=== PATIENT | female | born 1990 | race Caucasian/White ===

== ENCOUNTER 2017-09-15 11:50 | Emergency (ER) | payer OTHER ==
[~2017-09-15] VITALS: Ht 162.6 cm; Wt 67.0 kg
[2017-09-15 11:57] VITALS: Ht 162.6 cm; Wt 67.0 kg
[2017-09-15] MEDS ORDERED: MECLIZINE HCL 25 MG TAB PO STA (12:13)
[2017-09-15 12:44] LABS: BASO % 0.2 %; BASO ABS # 0.02 K/uL (0-0.2); EOS % 1.6 %; EOS ABS # 0.14 K/uL (0-0.5); HEMATOCRIT 42.9 % (37-47); HEMOGLOBIN 14.9 g/dL (12.0-16.0); IG# 0.01 K/uL (0.00-0.02); LYMPH % 20.5 %; LYMPH ABS # 1.85 K/uL (1.2-3.4); MEAN CELL VOLUME 90.7 fL (80-100); MEAN CORPUSCULAR HEMOGLOBIN 31.5 pg (25-34); MEAN CORPUSCULAR HGB CONC 34.7 g/dl (32-36); MEAN PLATELET VOLUME 9.4 fL (7.4-10.4); MONO % 4.6 %; MONO ABS # 0.41 K/uL (0.11-0.59); NEUT ABS # 6.58 K/uL (1.4-6.5); PLATELET COUNT 227 K/uL (130-400); RED CELL DISTRIBUTION WIDTH CV 12.5 % (11.5-14.5); WHITE BLOOD COUNT 9.01 K/uL (4.8-10.8)
[2017-09-15 12:55] LABS: CALCIUM 8.7 mg/dl (8.5-10.1); CREATININE 0.67 mg/dl (0.60-1.20); POTASSIUM 3.5 mmol/L (3.5-5.1)
[2017-09-15] MEDS ORDERED: MECL1TAB42 PO (14:57)
--- NOTE | 2017-09-15 15:00 | EMERGENCY ROOM VISIT NOTE ---
History First contact with patient: 12:02 Chief Complaint: VERTIGO Stated Complaint: VERTIGO Nursing Triage Summary: pt here with dizziness since 0300 this am. pt denies any headache or injury. pt states is dizzy with lying flat and getting up. pt states only nauseated when trying a "maneuver" her brother recommended to "dislodge crystal" in ear History of Present Illness The patient is a 26 year old female who presents to the Emergency Room via private vehicle accompanied by male with complaints of "vertigo". The patient states that this morning around 3 AM she woke up noting that she was sleeping on her glasses and then realized that the room was spinning. She describes it as vertigo. She states that she tried the Bing maneuver as recommended by her brother and it seemed to make it worse. She denies any history of this before. She notes associated nausea. No vomiting, no extremity weakness or speech troubles. She denies any recent alcohol use, or head trauma/injury. Pain 0/10 Review of Systems A complete 10-point Review of Systems was discussed with the patient, with pertinent positives and negatives listed in the History of Present Illness. All remaining Review of Systems questions can be considered negative unless otherwise specified. Past Medical/Surgical History No pertinent Family History Non contributory Social History Smoking Status: Never Smoker Patient is a [employer] student and lives locally. Current/Historical Medications Scheduled PRN Meclizine Hcl (Meclizine Hcl), 1 TAB PO TID PRN for Dizziness or Vertigo Physical Exam Vital Signs Date Time Temp Pulse Resp B/P (MAP) Pulse Ox O2 Delivery O2 Flow Rate FiO2 09/15/17 15:20 36.2 64 17 105/64 99 09/15/17 14:25 68 17 107/61 100 Room Air 09/15/17 11:57 36.2 78 16 106/66 97 Room Air Physical Exam VITAL SIGNS - Vital signs and nursing notes were reviewed. Stable. She does appear to be with decreased temperature but I believe this is secondary to drinking oral liquids. No evidence of hypothermia on exam. GENERAL - 26-year-old female appearing her stated age who is in no acute distress. Communicates well with provider and answers questions appropriately. SKIN - Without rashes. HEAD - NC/AT. EYES - PERRL with EOMI bilaterally. Sclera anicteric. Palpebral conjunctiva pink and moist with no injection noted. No nystagmus. EARS - No deformities of external structures noted on gross examination bilaterally. External auditory canals without discharge or otorrhea. Tympanic membranes pearly mauro without retraction or bulging. No fluid or purulent material visualized behind the TM. Handle of malleus, umbo, cone of light, pars tensa/flaccid all easily visualized. NOSE - Midline and without cyanosis. No epistaxis or purulent drainage noted. Septum midline without deviation or septal hematoma noted. MOUTH/OROPHARYNX - Without perioral cyanosis. Buccal mucosa pink and moist and without leukoplakia. Tongue midline with equal elevation of palate bilaterally. No tonsillar hypertrophy, erythema, or exudates noted. Fair dentition noted. NECK - Neck with FROM. Supple to palpation. No lymphadenopathy noted. No nuchal rigidity. LUNGS - Chest wall symmetric without accessory muscle use, intercostals retractions, or central cyanosis. Normal vesicular breath sounds CTA B/L. No wheezes, rales, or rhonchi appreciated. CARDIAC - RRR with S1/S2. No murmur, rubs, or gallops appreciated. EXTREMITIES - No clubbing or peripheral cyanosis. +5/5 strength noted in UE/LE bilaterally. NEUROLOGIC - Cranial nerves II through XII grossly intact. Sensory intact to light touch throughout. PSYCH - A&Ox3 and cooperates fully with examiner. Pt is very pleasant and interacts well with examiner. Medical Decision & Procedures Laboratory Results 09/15/17 12:25 Red Blood Count 4.73, Mean Corpuscular Volume 90.7, Mean Corpuscular Hemoglobin 31.5, Mean Corpuscular Hemoglobin Concent 34.7, Mean Platelet Volume 9.4, Neutrophils (%) (Auto) 73.0, Lymphocytes (%) (Auto) 20.5, Monocytes (%) (Auto) 4.6, Eosinophils (%) (Auto) 1.6, Basophils (%) (Auto) 0.2, Neutrophils # (Auto) 6.58, Lymphocytes # (Auto) 1.85, Monocytes # (Auto) 0.41, Eosinophils # (Auto) 0.14, Basophils # (Auto) 0.02 09/15/17 12:25 Test 09/15/17 12:25 09/15/17 14:35 White Blood Count 9.01 K/uL (4.8-10.8) Red Blood Count 4.73 M/uL (4.2-5.4) Hemoglobin 14.9 g/dL (12.0-16.0) Hematocrit 42.9 % (37-47) Mean Corpuscular Volume 90.7 fL (80-100) Mean Corpuscular Hemoglobin 31.5 pg (25-34) Mean Corpuscular Hemoglobin Concent 34.7 g/dl (32-36) Platelet Count 227 K/uL (130-400) Mean Platelet Volume 9.4 fL (7.4-10.4) Neutrophils (%) (Auto) 73.0 % Lymphocytes (%) (Auto) 20.5 % Monocytes (%) (Auto) 4.6 % Eosinophils (%) (Auto) 1.6 % Basophils (%) (Auto) 0.2 % Neutrophils # (Auto) 6.58 K/uL (1.4-6.5) Lymphocytes # (Auto) 1.85 K/uL (1.2-3.4) Monocytes # (Auto) 0.41 K/uL (0.11-0.59) Eosinophils # (Auto) 0.14 K/uL (0-0.5) Basophils # (Auto) 0.02 K/uL (0-0.2) RDW Standard Deviation 42.0 fL (36.4-46.3) RDW Coefficient of Variation 12.5 % (11.5-14.5) Immature Granulocyte % (Auto) 0.1 % Immature Granulocyte # (Auto) 0.01 K/uL (0.00-0.02) Anion Gap 6.0 mmol/L (3-11) Est Creatinine Clear Calc Drug Dose 121.9 ml/min Estimated GFR () 142.6 Estimated GFR (Non- 123.0 BUN/Creatinine Ratio 13.6 (10-20) Calcium Level 8.7 mg/dl (8.5-10.1) Magnesium Level 2.2 mg/dl (1.8-2.4) Urine Color YELLOW Urine Appearance CLEAR (CLEAR) Urine pH 7.5 (4.5-7.5) Urine Specific [place] 1.008 (1.000-1.030) Urine Protein NEG (NEG) Urine Glucose (UA) NEG (NEG) Urine Ketones NEG (NEG) Urine Occult Blood NEG (NEG) Urine Nitrite NEG (NEG) Urine Bilirubin NEG (NEG) Urine Urobilinogen NEG (NEG) Urine Leukocyte Esterase NEG (NEG) Urine Test NEG (NEG) Medications Administered Medications (Trade) Dose Ordered Sig/Semaj Route Start Time Stop Time Status Last Admin Dose Admin Meclizine HCl (Antivert Tab) 25 mg NOW STAT PO 09/15/17 12:13 09/15/17 12:16 DC 09/15/17 12:20 25 MG Medical Decision Patient was seen and evaluated as above in room B8. She presents to us with complaints of vertigo. She is nontoxic on exam and has no evidence of CVA. No nystagmus and very little residual vertigo per patient. Review was performed of nursing notes and vital signs. After obtaining a thorough history and physical examination the above work up was performed. I did elect to obtain baseline labs. CBC reveals no leukocytosis or anemia. Coags reveal no emergent process. Urine negative. Urine test negative. I suspect this to be an isolated benign vertigo event. Case was discussed with the attending physician. She was given Antivert. She improved. She will be given a small prescription for this and is to follow-up with [facility] or return with worsening. Because of her improvement with the Antivert I will not attempt any further maneuvers of which she notes she attempted prior to the hospital here today. There was no subjective nor objective evidence of head trauma. The patient was educated upon management, had questions answered prior to discharge, and was discharged home in good condition. In the evaluation and treatment of this patient, the following differential diagnoses were considered: Concussion, Contrecoup Injury, Brain Tumor, Depression, Encephalitis, Hypothyroidism, Meningitis, CVA, TIA, Migraine, Cluster Headache, Intracranial Abnormality, Intracranial Hemorrhage, Subdural Hematoma, Subarachnoid Hemorrhage, Hydrocephalus. Impression Primary Impression: Vertigo Departure Information Dispostion Home / Self-Care Condition GOOD Prescriptions Meclizine Hcl (MECLIZINE HCL) 25 Mg Tab 1 TAB PO TID Y for Dizziness or Vertigo for 10 Days, #30 TAB Prov: Masoud Garcia PA-C 09/15/17 Referrals No Doctor, Assigned (PCP) [facility] Patient Instructions [facility] Additional Instructions You have been treated in the Emergency Department for Vertigo. Meclizine 1 tab every 8 hours as needed for vertigo. Only need when feeling the vertigo. Please call [facility] to schedule follow-up. Please stay well-hydrated. Return to the Emergency Department if your current symptoms worsen despite treatment course outlined above, or if you develop any of the following symptoms : intractable pain despite aforementioned treatment course, visual disturbances , loss of vision, unilateral weakness or facial drooping, slurring of speech, loss of coordination, or loss of consciousness. Please return with any new/concerning symptoms.
[2017-09-15 15:20] VITALS: BP 105/64; PULSE 64; TEMP 36.2; O2SAT 99
== END 2017-09-15 15:21 | disposition home or self-care (01) ==
LOC: C.EDB 11:51
DX: R42 Dizziness and giddiness (principal)